=== PATIENT | male | born 1955 | race Caucasian/White ===

== ENCOUNTER 2022-04-07 07:51 | Observation (INO) | payer MEDICARE ==
[2022-04-07 08:56] LABS: #Eosinphils 0.2 thou/uL (0.0-0.7); #Lymphocytes 1.7 thou/uL (1.20-3.40); #Monocytes 0.8 thou/uL (0.11-0.59); #Neutrophils 6.5 thou/uL (1.40-6.50); %Basophils 0.2 % (0.0-1.0); %Eosinophils 1.9 % (0.0-10.0); %Lymphocytes 18.8 % (21.0-51.0); %Monocytes 8.6 % (0.0-10.0); %Neutrophils 70.6 % (42.0-75.0); Hemoglobin 13.7 g/dL (14.0-18.0); Mean Corpuscular HGB CONC 32.8 g/dL (32.0-36.0); Mean Corpuscular Hemoglobin 30.2 pg (27.0-31.0); Mean Corpuscular Volume 92.1 fL (78.0-98.0); Platelet Count 247 thou/uL (130-400); RBC Distribution Width 12.8 % (11.5-14.5); Red Blood Cell (RBC) Count 4.53 mill/uL (4.70-6.10); White Blood Cell (WBC) Count 9.2 thou/uL (4.8-10.8)
[2022-04-07] MEDS ORDERED: Aspirin Chewable 81 MG TAB ONE (09:20)
[2022-04-07] MEDS ORDERED: Nitroglycerin 2% Ointment 1 INCH/1 GM Packet ONE (09:20)
[2022-04-07] MEDS ORDERED: Furosemide 40 MG/4 ML VIAL ONE (09:20)
[2022-04-07 09:24] LABS: ALT (SGPT) 15 U/L (8-55); AST (SGOT) 22 U/L (5-34); Alkaline Phosphatase 41 U/L (40-110); Anion Gap 16 mmol/L (10-20); BUN (Urea Nitrogen) 22 mg/dL (8.4-25.7); Bilirubin, Total 1.1 mg/dL (0.2-1.2); Calc. Creatinine Clearance 0 mL/min (70-130); Calcium 9.3 mg/dL (7.8-10.44); Carbon Dioxide 25 mmol/L (23-31); Chloride 102 mmol/L (98-107); Globulin 2.9 g/dL (2.4-3.5); Glucose 164 mg/dL (80-115); Potassium 3.7 mmol/L (3.5-5.1); Protein, Total 6.9 g/dL (5.8-8.1); Sodium 139 mmol/L (136-145)
[2022-04-07] MEDS ORDERED: Acetaminophen 325 MG TAB PO PRN (11:00)
[2022-04-07] MEDS ORDERED: Ondansetron PF 4 MG/2 ML Vial IVP PRN (11:00)
[2022-04-07] MEDS ORDERED: Ondansetron ODT 4 MG TAB SL PRN (11:00)
[2022-04-07] MEDS ORDERED: Dextrose 5% in Water 1,000 ML IV PRN (11:06)
[2022-04-07] MEDS ORDERED: HumaLOG 300 UNITS/3 ML VIAL SC PRN (11:06)
[2022-04-07] MEDS ORDERED: Dextrose 50% Abboject 50 ML SYRINGE SLOW IVP PRN (11:06)
[2022-04-07] MEDS ORDERED: tiZANidine HCl 4 MG TAB PO PRN (11:07)
[2022-04-07 12:26] LABS: SARS-CoV-2 NAA Rapid Test Not Detected (NotDetected)
[2022-04-07 12:35] VITALS: BMI 33.2
[2022-04-07 12:42] LABS: Troponin I 0.013 ng/mL (< 0.028)
[2022-04-07 14:57] LABS: Troponin I 0.012 ng/mL (< 0.028)
[2022-04-07] MEDS: Furosemide 40 MG/4 ML VIAL SLOW IVP SCH (15:30)
[2022-04-07] MEDS: HumaLOG 300 UNITS/3 ML VIAL SC SCH ×2 (15:31→18:26)
[2022-04-07] MEDS: Insulin Glargine 30 UNITS/0.3 ML VIAL SC SCH (20:41)
[2022-04-07] MEDS ORDERED: Atorvastatin Calcium 40 MG TAB PO SCH (21:00)
[2022-04-08 05:15] LABS: #Eosinphils 0.2 thou/uL (0.0-0.7); #Lymphocytes 2.2 thou/uL (1.20-3.40); #Neutrophils 5.6 thou/uL (1.40-6.50); %Basophils 0.2 % (0.0-1.0); %Eosinophils 2.4 % (0.0-10.0); %Lymphocytes 23.9 % (21.0-51.0); %Monocytes 11.1 % (0.0-10.0); %Neutrophils 62.4 % (42.0-75.0); Hemoglobin 13.1 g/dL (14.0-18.0); Mean Corpuscular HGB CONC 33.4 g/dL (32.0-36.0); Mean Corpuscular Hemoglobin 30.5 pg (27.0-31.0); Mean Corpuscular Volume 91.2 fL (78.0-98.0); Mean Platelet Volume 7.1 fL (7.4-10.4); Platelet Count 226 thou/uL (130-400); RBC Distribution Width 12.5 % (11.5-14.5)
[2022-04-08 05:41] LABS: Anion Gap 14 mmol/L (10-20); BUN (Urea Nitrogen) 22 mg/dL (8.4-25.7); Calc. Creatinine Clearance 86 mL/min (70-130); Calcium 8.8 mg/dL (7.8-10.44); Carbon Dioxide 29 mmol/L (23-31); Chloride 99 mmol/L (98-107); Glucose 194 mg/dL (80-115); Potassium 3.4 mmol/L (3.5-5.1); Sodium 139 mmol/L (136-145)
[2022-04-08] MEDS: Furosemide 40 MG/4 ML VIAL SLOW IVP SCH ×2 (06:12→13:23)
[2022-04-08] MEDS ORDERED: Potassium Chloride 20 MEQ TAB PO SCH (08:15)
[2022-04-08] MEDS: Empagliflozin 10 MG TAB PO SCH ×2 (08:37→10:30)
[2022-04-08] MEDS: Insulin Glargine 30 UNITS/0.3 ML VIAL SC SCH (08:39)
[2022-04-08] MEDS: HumaLOG 300 UNITS/3 ML VIAL SC SCH ×2 (08:40→13:22)
[2022-04-08] MEDS ORDERED: Hydrochlorothiazide 25 MG TAB PO SCH (09:00)
[2022-04-08] MEDS ORDERED: Ezetimibe 10 MG TAB PO SCH (09:00)
[2022-04-08] MEDS ORDERED: Ramipril 5 MG CAP PO SCH ×2 (09:00→21:00)
[2022-04-08] MEDS ORDERED: Aspirin 81 mg Enteric Coated Tablet PO SCH (09:00)
[2022-04-08] MEDS ORDERED: Amlodipine 10 MG TAB PO SCH (09:00)
[2022-04-08] MEDS ORDERED: Clopidogrel Bisulfate 75 MG TAB PO SCH (09:00)
[2022-04-08] MEDS ORDERED: Enoxaparin Sodium 40 MG/0.4 ML SYRINGE SC SCH ×2 (09:00)
[2022-04-08 16:17] VITALS: BP 125/62; TEMP 97.5
== END 2022-04-08 19:10 | disposition home or self-care (01) ==
LOC: ERS 07:51 → 2SW 10:45
PROVIDERS: ADMIT Internal Medicine; ATTEND Internal Medicine
DX: I13.0 Hypertensive heart and chronic kidney disease with heart failure and stage 1 through stage 4 chronic kidney disease, or unspecified chronic kidney disease (principal); E11.22 Type 2 diabetes mellitus with diabetic chronic kidney disease; N18.30 Chronic kidney disease, stage 3 unspecified; I50.31 Acute diastolic (congestive) heart failure; N17.9 Acute kidney failure, unspecified; E87.6 Hypokalemia; I25.10 Atherosclerotic heart disease of native coronary artery without angina pectoris; I25.2 Old myocardial infarction; Z79.02 Long term (current) use of antithrombotics/antiplatelets; Z79.4 Long term (current) use of insulin; Z79.82 Long term (current) use of aspirin; Z79.899 Other long term (current) drug therapy; Z20.822 Contact with and (suspected) exposure to COVID-19
CPT/HCPCS: 71045; 80048; 80053; 82962 ×2; 83880; 84484 ×2; 85025 ×2; 93005; 93306; 94760; 96372; 96374; 96376 ×2; 99285; G0378 ×3; U0002; 36415; 36416; J1650; J1815; J1940